=== PATIENT | male | born 1970 | race Asian ===

== ENCOUNTER 2017-05-12 22:12 | Emergency (ER) | payer OTHER ==
[2017-05-12 22:18] VITALS: TEMP 36.6
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
[2017-05-13 00:34] VITALS: BP 138/88; PULSE 76; O2SAT 97
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
== END 2017-05-13 00:37 | disposition home or self-care (01) ==
LOC: EDBD 22:12 → C.EDC 22:14
DX: M25.512 Pain in left shoulder (principal); M54.9 Dorsalgia, unspecified; V49.40XA Driver injured in collision with unspecified motor vehicles in traffic accident, initial encounter; Y92.488 Other paved roadways as the place of occurrence of the external cause